=== PATIENT | female | born 1985 | race Two or more races ===

== ENCOUNTER 2017-04-11 17:51 | Emergency (ER) | payer MEDICARE, MEDICAID ==
[2017-04-11] MEDS ORDERED: Sodium Chloride 0.9% 1,000 ML IV ONE (17:56)
--- NOTE | 2017-04-11 18:18 | ED Physician Chart ---
Chief Complaint/HPI - Patient Information Date Seen:: 04/11/17 Time Seen:: 18:10 Chief Complaint:: BACK PAIN History of Present Illness:: THIS IS A 31 YR OLD FEMALE WHO IS BECAUSE OF VOMITING AND PAIN IN HER BACK. STATES THAT SHE HAS DILAUDID FOR PAIN BUT CANNOT TAKE IT BECAUSE OF VOMITING. SHE STATES THAT SHE IS IN A PAIN MANAGEMENT PROGRAM AT [facility]. SHE DENIES ANY PARTICULAR REASON FOR HER BACK PAIN. SHE PERSIST IN WANTING DILAUDID. SHE DENIES DRUG ABUSE EXCEPT FOR THC. THE PATIENT STATES THAT SHE WAS SEEN AT [facility] YESTERDAY. Allergies:: Allergies Allergy/AdvReac Type Severity Reaction Status Date / Time haloperidol [From Haldol] Allergy Verified 04/11/17 18:05 Historian:: Patient, Family Member (MEDICAL DOCTOR DR. BETH) Review:: Nurse's Note Reviewed Review of Systems - Review of Systems General/Constitutional: No fever, No chills, Weight loss, No weakness, No diaphoresis, No edema, No loss of appetite Skin: No skin lesions, No rash, No bruising Head: No headache, No light-headedness Eyes: No loss of vision, No pain, No diplopia ENT: No earache, No nasal drainage, No sore throat, No tinnitus Neck: No neck pain, No swelling, No thyromegaly, No stiffness, No mass noted Cardio Vascular: No chest pain, No palpitations, No PND, No orthopnea, No edema Pulmonary: No SOB, No cough, No sputum, No wheezing GI: No nausea, No vomiting, No diarrhea, No pain, No melena, No hematochezia, No constipation, No hematemesis G/U: No dysuria, No frequency, No hematuria Musculoskeletal: No bone or joint pain, Back pain, No muscle pain Endocrine: No polyuria, No polydipsia Psychiatric: Prior psych history, No depression, No anxiety, No suicidal ideation Hematopoietic: No bruising, No lymphadenopathy Allergic/Immuno: No urticaria, No angioedema Neurological: No syncope, No focal symptoms, No weakness, No paresthesia, No headache, No seizure, No dizziness, No confusion, No vertigo Past Medical History - Past Medical History Obtainable: Yes Past Medical History: Other (CHRONIC PAIN ) Family History: None Social History: Non Smoker, No Alcohol, Illicit Drug Use Surgical History: None Medication: Reviewed Family Medical History - Family Member Father History Unknown: Yes Hx Family Cancer: No Hx Family Coronary Artery Disease: No Hx Family Congestive Heart Failure: No Hx Family Hypertension: No Hx Family Stroke: No Hx Family Diabetes: No Hx Family Seizures: No Hx Family Dementia: No Hx Family AIDS: No Hx Family HIV: No Hx Family COPD: No Physical Exam - Physical Examination General/Constitutional: Awake, Well-developed, well-nourished, Alert, No distress, GCS 15, Non-toxic appearing, Ambulatory Other Gen/Cons comments:: THE PATIENT IS RESTLESS CONSTANTLY ASKING FOR PAIN MEDICATIONS. Head: Atraumatic Eyes: Lids, conjuctiva normal, PERRL, EOMI Skin: Nl inspection, No rash, No skin lesions, No ecchymosis, Well hydrated, No lymphadenopathy ENMT: External ears, nose nl, Nasal exam nl, Lips, teeth, gums nl Neck: Nontender, Full ROM w/o pain, No JVD, No nuchal rigidity, No bruit, No mass, No stridor Respiratory: Nl effort/Exclusion, Clear to Auscultation, No Wheeze/Rhonchi/Rales Cardio Vascular: RRR, No murmur, gallop, rubs, NL S1 S2 GI: No tenderness/rebounding/guarding, No organomegaly, No hernia, Normal BS's, Nondistended, No mass/bruits, No McBurney tenderness : No CVA tenderness Extremities: No tenderness or effusion, Full ROM, normal strength in all extremities, No edema, Normal digits & nails Neuro/Psych: Alert/oriented, DTR's symmetric, Normal sensory exam, Normal motor strength, Judgement/insight normal, Mood normal, Normal gait, No focal deficits Misc: normal gait, Normal back, No paraspinal tenderness Labs/Radiology/EKG Results - Lab Results Results: Abnormal Lab Results 04/11/17 04/11/17 04/11/17 19:14 19:14 19:14 WBC 13.9 H RBC 4.75 Hgb 13.6 Hct 42.0 MCV 88.4 MCH 28.6 MCHC Differential 32.3 RDW 13.4 Plt Count 271 MPV 8.4 Neutrophils % 78.2 Lymphocytes % 15.6 L Monocytes % 4.9 Eosinophils % 0.7 Basophils % 0.6 PT 10.4 INR 1.00 Sodium 134 L Potassium 3.5 Chloride 102 Carbon Dioxide 26.2 Anion Gap 9.3 BUN 12 Creatinine 0.8 Est GFR ( Amer) > 60.0 Est GFR (Non-Af Amer) > 60.0 BUN/Creatinine Ratio 15.0 Glucose 99 Calcium 9.5 Total Bilirubin 0.5 AST 21 ALT 19 Alkaline Phosphatase 67 Troponin I Total Protein 7.3 Albumin 4.4 Globulin 2.9 Albumin/Globulin Ratio 1.5 04/11/17 19:14 WBC RBC Hgb Hct MCV MCH MCHC Differential RDW Plt Count MPV Neutrophils % Lymphocytes % Monocytes % Eosinophils % Basophils % PT INR Sodium Potassium Chloride Carbon Dioxide Anion Gap BUN Creatinine Est GFR ( Amer) Est GFR (Non-Af Amer) BUN/Creatinine Ratio Glucose Calcium Total Bilirubin AST ALT Alkaline Phosphatase Troponin I < 0.01 L Total Protein Albumin Globulin Albumin/Globulin Ratio Assessment - Assessment General Assessment: THIS PATIENT IS CLEARLY ADDICTED TO ANALGESICS AND SHOULD BE IN PAIN MANAGEMENT. THE PATIENT WAS GIVEN ATIVAN, SOLUMEDROL, BENADRYL,DILAUDID, ZOFRAN, ROCEHPIN AND IV FLUIDS. HOWEVER SHE CONTINUED TO ASK FOR MORE PAIN MEDICATIONS. THE PATIENT WAS GIVEN GABAPENTIN 600 MG TO TAKE AT HOME. SHE WAS TOLD TO FOLLOW UP AT HER PAIN MANAGEMENT DOCTOR IN THE AM. ED Septic Shock - . Is Septic Shock (SBP<90, OR Lactate>4 mmol\L) present?: No Reassessment (Disposition) - Reassessment Reassessment Condition:: Improved - Diagnosis Diagnosis:: CHRONIC BACK PAIN DRUG ADDICTION TO ANALGESICS - Aftercare/Follow up Instructions Aftercare/Follow-Up Instructions:: Counseled pt regarding lab results/diagnosis & need follow up, Refer to Discharge Instructions, Counseled pt & family regarding lab results/diagnosis & need follow up - Patient Disposition Discharge/Transfer:: Home Condition at Disposition:: Improved ED Discharge Plan - Patient Disposition Admit/Discharge/Transfer: PT DISCHARGED HOME Condition at Disposition: Improved Instructions: Back Pain, Adult Additional Instructions: THE PATIENT WAS TOLD TO TAKE THE MEDICATION DIRECTED.
[2017-04-11 19:23] LABS: % BASOPHILS 0.6 % (0.0-2.0); % EOSINOPHILS 0.7 % (0.0-5.0); % LYMPHOCYTES 15.6 % (20.0-50.0); % MONOCYTES 4.9 % (2.0-10.0); % NEUTROPHILS 78.2 % (40.0-80.0); HEMOGLOBIN 13.6 gm/dL (11.7-15.5); MEAN CELL VOLUME 88.4 fl (81-100); MEAN CORPUSCULAR HEMOGLOBIN 28.6 pg (27.0-31.0); MEAN CORPUSCULAR HGB CONC 32.3 pg (28.0-36.0); MEAN PLATELET VOLUME 8.4 fl; NEUTROPHILE ABSOLUTE 10.8 Th/cmm (1.8-8.0); PLATELET COUNT 271 Th/cmm (150-400); RED BLOOD COUNT 4.75 Mil/cmm (3.80-5.10); RED CELL DISTRIBUTION WIDTH 13.4 % (11.5-20.0)
[2017-04-11 19:28] LABS: WHITE BLOOD COUNT 13.9 Th/cmm (4.8-10.8)
[2017-04-11 19:40] LABS: PROTHROMBIN TIME (TEST) 10.4 SECONDS (9.5-11.5)
[2017-04-11 19:44] LABS: ALB/GLOB RATIO 1.5 (1.0-1.8); ALKALINE PHOSPHATASE 67 U/L (34-104); ANION GAP 9.3 (7.0-16.0); BILIRUBIN,TOTAL 0.5 mg/dL (0.3-1.0); BUN - UREA NITROGEN 12 mg/dL (7-25); CALCIUM SERUM 9.5 mg/dL (8.6-10.3); CARBON DIOXIDE 26.2 mEq/L (21.0-31.0); CHLORIDE 102 mEq/L (98-107); CREATININE - SERUM 0.8 mg/dL (0.6-1.2); GLUCOSE 99 mg/dL (70-105); POTASSIUM SERUM 3.5 mEq/L (3.5-5.1); SGOT 21 U/L (13-39); SGPT/ALT 19 U/L (7-52); SODIUM SERUM 134 mEq/L (136-145)
[2017-04-11] MEDS ORDERED: HYDROmorphone 1 mg/mL 1mL Syr IVP STA (20:00)
[2017-04-11] MEDS ORDERED: HYDROmorphone 1 mg/mL 1mL Syr ONE (20:05)
[2017-04-11 20:49] LABS: URINE BILIRUBIN NEGATIVE (NEGATIVE); URINE BLOOD MODERATE (NEGATIVE); URINE COLOR YELLOW; URINE GLUCOSE (UA) NEGATIVE (NEGATIVE); URINE KETONE 15 mg/dL (NEGATIVE)
[2017-04-11 20:50] LABS: URINE PH 8.5; URINE PROTEIN NEGATIVE (NEGATIVE); URINE UROBILINOGEN 0.2 E.U./dL (0.2 - 1.0)
[2017-04-11 20:52] LABS: URINE BACTERIA NONE SEEN /hpf (NONE SEEN); URINE EPITHELIAL CELLS FEW /lpf (FEW); URINE RBC >100 /hpf (0-5); URINE WBC NONE SEEN /hpf (0-5)
== END 2017-04-11 21:05 | disposition home or self-care (01) ==
LOC: ER 17:51
DX: G89.29 Other chronic pain (principal); M54.9 Dorsalgia, unspecified; F55.8 Abuse of other non-psychoactive substances; Z88.8 Allergy status to other drugs, medicaments and biological substances
CPT/HCPCS: 99284; 96365; 96375; 96376; 84484; 36415; 83605; 84443; 85025; 85610; 81001; 80053; 87040; J2060; J2405 ×2; J0696; J2930; J1170; J1200; J7030; Z7502

== ENCOUNTER 2017-04-13 07:21 | Emergency (ER) | payer MEDICARE, MEDICAID ==
--- NOTE | 2017-04-13 07:36 | ED Physician Chart ---
Chief Complaint/HPI - Patient Information Date Seen:: 04/13/17 Time Seen:: 07:30 Chief Complaint:: Recurrent nausea/vomiting since this morning. History of Present Illness:: Pt has h/o marijuana use with recurrent nausea/vomiting. Pt began to have recurrent nausea/vomiting since about 5 am today. Pt has h/o chronic pain syndrome related to chronic low back pain. Pt has been [facility] by [facility] and is being treated with Dilaudid. Pt states that her nausea/ vomiting this morning prevents her from taking her usual dose of Dilaudid. Pt states that she had work up by PCP Dr. Witt for her chronic low back pain with LS spine X-ray, etc. Pt denies any LE weakness or numbness. No urinary incontinence or retention. Pt has had multiple ER visits for the same condition. His last visit was 2 days ago here and was treated by Dr. Marquez. Allergies:: Allergies Allergy/AdvReac Type Severity Reaction Status Date / Time haloperidol [From Haldol] Allergy Verified 04/11/17 18:05 Vitals:: see Nurse Note. Historian:: Patient Family MD/PCP:: Dr. Witt LMP:: Now. Review:: Nurse's Note Reviewed Past Medical History - Past Medical History Past Medical History: Other (Chronic pain syndrome with low back pain, followed by Dr. Benitez at [facility]) Family History: Heart disease (in father) Social History: Non Smoker, No Alcohol, Illicit Drug Use (with marijuana. Pt has been informed about health risks associated with chronic marijuana use and has been advised to quit. Pt states that she plans to work with her PCP Dr. Witt to enroll in a detox program.), , Lives With Parents Employment:: unemployed. Surgical History: None Psychiatricy History: None Medication: Reviewed Family Medical History - Family Member Father History Unknown: Yes Hx Family Cancer: No Hx Family Coronary Artery Disease: No Hx Family Congestive Heart Failure: No Hx Family Hypertension: No Hx Family Stroke: No Hx Family Diabetes: No Hx Family Seizures: No Hx Family Dementia: No Hx Family AIDS: No Hx Family HIV: No Hx Family COPD: No Labs/Radiology/EKG Results - Lab Results Results: Laboratory Tests 04/13/17 04/13/17 04/13/17 07:37 07:41 07:42 WBC RBC Hgb Hct MCV MCH MCHC Differential RDW Plt Count MPV Neutrophils % Lymphocytes % Monocytes % Eosinophils % Basophils % Sodium Potassium Chloride Carbon Dioxide Anion Gap BUN Creatinine Est GFR ( Amer) Est GFR (Non-Af Amer) BUN/Creatinine Ratio Glucose Whole Bld Lactic Acid Calcium Urine Source CLEAN C Urine Color YELLOW Urine Clarity HAZY Urine pH 8.5 Ur Specific [place] 1.025 Urine Protein 30 H Urine Glucose (UA) NEGATIVE Urine Ketones 15 H Urine Blood LARGE H Urine Nitrate NEGATIVE Urine Bilirubin NEGATIVE Urine Urobilinogen 0.2 Ur Leukocyte Esterase NEGATIVE Urine RBC >100 H Urine WBC 2-5 Ur Epithelial Cells FEW Urine Bacteria FEW Urine Test NEGATIVE Urine Opiates Screen NEGATIVE Urine Methadone Screen NEGATIVE Ur Barbiturates Screen POSITIVE H Ur Tricyclics Screen NEGATIVE Ur Phencyclidine Scrn NEGATIVE Amphetamines Screen NEGATIVE U Methamphetamines Scrn NEGATIVE U Benzodiazepines Scrn POSITIVE H U Cocaine Metab Screen NEGATIVE U Cannabinoids Screen POSITIVE H 04/13/17 04/13/17 04/13/17 07:48 07:48 07:48 WBC 12.9 H RBC 4.71 Hgb 13.8 Hct 41.4 MCV 88.0 MCH 29.3 MCHC Differential 33.3 RDW 12.9 Plt Count 342 D MPV 8.0 Neutrophils % 54.1 Lymphocytes % 34.5 Monocytes % 7.9 Eosinophils % 1.7 Basophils % 1.8 Sodium 136 Potassium 3.5 Chloride 104 Carbon Dioxide 27.0 Anion Gap 8.5 BUN 16 Creatinine 0.8 Est GFR ( Amer) > 60.0 Est GFR (Non-Af Amer) > 60.0 BUN/Creatinine Ratio 20.0 Glucose 101 Whole Bld Lactic Acid 1.11 Calcium 9.7 Urine Source Urine Color Urine Clarity Urine pH Ur Specific [place] Urine Protein Urine Glucose (UA) Urine Ketones Urine Blood Urine Nitrate Urine Bilirubin Urine Urobilinogen Ur Leukocyte Esterase Urine RBC Urine WBC Ur Epithelial Cells Urine Bacteria Urine Test Urine Opiates Screen Urine Methadone Screen Ur Barbiturates Screen Ur Tricyclics Screen Ur Phencyclidine Scrn Amphetamines Screen U Methamphetamines Scrn U Benzodiazepines Scrn U Cocaine Metab Screen U Cannabinoids Screen Note: urine was contaminated with menstrual blood according to nursing staff. ED Septic Shock - . Is Septic Shock (SBP<90, OR Lactate>4 mmol\L) present?: No Reassessment (Disposition) - Reassessment Reassessment:: 1000 Pt repeatedly requested for more Dilaudid. Pt has not been tachycardic with other objective sign of distress. Discussed with nusing staff who involved with her care, who concurred that pt should not receive more opioid pain control. Per pt's authorization, I discussed with pt's mother at length, who stated that she is very familiar with pt's condition. Arrangement is being made to follow with pt's PCP Dr. Witt and her pain clinic physician Dr. Benitez to refer pt for a detox program. Pt finally decided to leave with her mother. Her mother will drive pt home and will care for her. Aftercare instructions have been given. Reassessment Condition:: Improved - Diagnosis Diagnosis:: Polysubstance abuse with recurrent N/V. Chronic pain syndrome with opioid dependency. - Aftercare/Follow up Instructions Aftercare/Follow-Up Instructions:: Refer to Discharge Instructions Notes:: Clear liquid today. Increase oral fluid. Bedrest. N/V/D Instructions given. Drowsiness precautions given with the use of Dilaudid. F/U with PCP Dr. Witt and [facility] with Dr. Benitez in one day for recheck with repeat lab study: CBC, urinalysis. Return to ER immediately if condition worsens or if any further questions/problems. Medication Prescribed:: None - Patient Disposition Discharge/Transfer:: Home Time:: 09:55 Condition at Disposition:: Stable, Improved ED Discharge Plan - Patient Disposition Admit/Discharge/Transfer: PT DISCHARGED HOME Condition at Disposition: Stable Instructions: Cyclic Vomiting Syndrome, Narcotic Withdrawal Additional Instructions: Follow up with your primary care doctor or you can follow up with Dr. Mejia. Do not smoke marijuana. Take all prescribed medications as directed. Return to emergency Accepting Physician: Katie Mejia [Courtesy] -
[2017-04-13] MEDS ORDERED: HYDROmorphone 1 mg/mL 1mL Syr IVP STA ×2 (07:38→08:48)
[2017-04-13] MEDS ORDERED: HYDROmorphone 1 mg/mL 1mL Syr ONE ×2 (07:43→08:43)
[2017-04-13 07:55] LABS: % BASOPHILS 1.8 % (0.0-2.0); % EOSINOPHILS 1.7 % (0.0-5.0); % LYMPHOCYTES 34.5 % (20.0-50.0); % MONOCYTES 7.9 % (2.0-10.0); % NEUTROPHILS 54.1 % (40.0-80.0); HEMATOCRIT 41.4 % (35.0-45.0); HEMOGLOBIN 13.8 gm/dL (11.7-15.5); MEAN CORPUSCULAR HEMOGLOBIN 29.3 pg (27.0-31.0); MEAN CORPUSCULAR HGB CONC 33.3 pg (28.0-36.0); PLATELET COUNT 342 Th/cmm (150-400); RED BLOOD COUNT 4.71 Mil/cmm (3.80-5.10); RED CELL DISTRIBUTION WIDTH 12.9 % (11.5-20.0)
[2017-04-13 08:03] LABS: WHITE BLOOD COUNT 12.9 Th/cmm (4.8-10.8)
[2017-04-13 08:12] LABS: ANION GAP 8.5 (7.0-16.0); BUN - UREA NITROGEN 16 mg/dL (7-25); CALCIUM SERUM 9.7 mg/dL (8.6-10.3); CHLORIDE 104 mEq/L (98-107); CREATININE - SERUM 0.8 mg/dL (0.6-1.2); GLUCOSE 101 mg/dL (70-105); POTASSIUM SERUM 3.5 mEq/L (3.5-5.1); SODIUM SERUM 136 mEq/L (136-145)
[2017-04-13 08:49] LABS: AMPHETAMINE URINE NEGATIVE (NEGATIVE); BARBITURATES URINE POSITIVE (NEGATIVE); METHADONE URINE NEGATIVE (NEGATIVE)
[2017-04-13 08:53] LABS: URINE COLOR YELLOW
[2017-04-13 08:54] LABS: URINE BILIRUBIN NEGATIVE (NEGATIVE); URINE BLOOD LARGE (NEGATIVE); URINE GLUCOSE (UA) NEGATIVE (NEGATIVE); URINE KETONE 15 mg/dL (NEGATIVE); URINE PH 8.5; URINE PROTEIN 30 mg/dL (NEGATIVE); URINE UROBILINOGEN 0.2 E.U./dL (0.2 - 1.0)
[2017-04-13 08:55] LABS: URINE EPITHELIAL CELLS FEW /lpf (FEW); URINE RBC >100 /hpf (0-5)
[2017-04-13 08:56] LABS: URINE BACTERIA FEW /hpf (NONE SEEN)
== END 2017-04-13 09:55 | disposition home or self-care (01) ==
LOC: ER 07:21
DX: R11.2 Nausea with vomiting, unspecified (principal); G89.4 Chronic pain syndrome; F11.20 Opioid dependence, uncomplicated; F19.10 Other psychoactive substance abuse, uncomplicated; Z88.8 Allergy status to other drugs, medicaments and biological substances
CPT/HCPCS: 99284; 96374; 96375; 96376; 36415; 83605; 80307; 85025; 81001; 81025; 80048; 87040; J2405; J1170; Z7502; Z7610

== ENCOUNTER 2017-08-01 10:36 | Emergency (ER) | payer MEDICARE, MEDICAID ==
--- NOTE | 2017-08-01 15:09 | ER Physician Documentation ---
DATE OF SERVICE: A 31-year-old female patient. HISTORY OF PRESENT ILLNESS: This is a patient who came in screaming, shouting, yelling, wanting pain medication and wanting narcotics. She has a pain management program. She is supposed to go today, but she came here instead to get some narcotics and pain medication. She says she has back pain, body pain and this pain and that pain, every kind of pain that she can think. She thinks this is an Emergency Room, so she should get all the medication that she wants. She is complaining of nausea and vomiting also, but none was witnessed. She complains of back pain. I did not find any back pain, tenderness or any guarding. No other complaints are needed, but continuously screaming and yelling and shouting. The patient was told at the most, we will give her some Ultram and send her over to the Pain Management. Her past history is again the pain issue is there in the past and I cannot get more history from her or from her mother who brought the patient here. According to the nurse, the patient has been coming here. I do not have any more history available from the patient. PAST HISTORY: Denied and negative except for the psych history that is available. PERSONAL HISTORY: Benign and negative. REVIEW OF SYSTEMS: No history of any chest pain, no palpitations, no dizziness, no COPD, no emphysema, no history of any gut problems, diarrhea or vomiting. No history of any cirrhotic liver, no history of taking any [id number] medication, but she is in the pain program for some time and she is going right now. We will give her 30 mg of Ultram and then informed her mother and mother is agreeing to go after she gets an injection. PHYSICAL EXAMINATION: VITAL SIGNS: Temperature of 97.1, pulse of 68, respirations 16, blood pressure 106/65, and saturation is 98%. CHEST: Clear, without any rales, rhonchi, or bronchial breathing. ABDOMEN: Soft, benign, negative. CENTRAL NERVOUS SYSTEMS: Within normal. EMERGENCY DEPARTMENT COURSE: The patient shouting and yelling and wearing dark sunglasses not in any distress that I can see, but she is shouting and yelling and thinking because this is Emergency Room, she will get all the narcotics and pain medications that she is demanding and there is no pain that I can see. No spasm in the muscles. Heart sounds are good. Lungs are good. Abdomen is good. No hernia. No evidence of any distention. CLINICAL IMPRESSION: The patient has a pain management problem. The patient has most likely psychiatric problems. She would need to go and see a psychiatrist and she does not want to go and see a psychiatrist. The patient's management was discussed with the patient's mother at length. The patient's mother wants to take her to the Pain Management Program at the present moment after getting the pain medications. Vital signs are normal. The patient does not allow anything else to be done for her. She does not want any ____ medication, but she wants any narcotics that could be given to her. ALLERGIES: TO HALDOL. Pain is 10/10. We will give her Toradol and then if she desires, she can be sent back to the Pain Management Program where she has an appointment today and she should follow the advice of the nurse and my advice and she should go after the pain is relieved with Ultram 30 mg should definitely help her up, but we are not the Pain Clinic here, this is an Emergency Room for basic emergency needs and she will need pain management, so she will be going there. JOB# [id number]
== END 2017-08-01 11:22 | disposition home or self-care (01) ==
LOC: ER 10:36
DX: M54.9 Dorsalgia, unspecified (principal)
CPT/HCPCS: 99283; 96372; Q0162; J1885; Z7502

== ENCOUNTER 2018-06-14 09:58 | Emergency (ER) | payer MEDICARE, MEDICAID ==
[2018-06-14 10:57] LABS: URINE SOURCE CLEAN C
[2018-06-14] MEDS ORDERED: PROMETHAZINE 12.5 MG RC ONE ×2 (11:06→11:11)
--- NOTE | 2018-06-14 11:06 | ED Physician Chart ---
ED Chief Complaint/HPI - Patient Information Date Seen:: 06/14/18 Time Seen:: 10:20 Chief Complaint:: constipation and back pain History of Present Illness:: constipation and chronic back pain. Patient was at a previous hospital this morning. Taken there by firefighters since her mother refuses to drive her to the hospital since she is fed up with her situation. Patient was seen at [facility] this morning. I personally spoke to Dr. Joe who treated her this morning and gave her Benadryl 50 mg IM, Toradol 15 mg IM and Reglan 10 mg IM. She told Dr. Joe that she has both [place] and Dilaudid at home. [facility] faxed us previous records: 06/13/2018 rectal revealed external hemorrhoids which are not inflamed and no masses or impacted stool in the rectal vault. On 06/13/2018, patient received Ativan 1 mg IVP, Benadryl 50 mg IVP, Morphine 8 mg IVP and a total of Reglan 20 mg IV. She also received potassium 40 meq for a level of 2.9. Her diagnoses included malingering and constipation. On that date, her lipase level was 557 up from the previous day of 06/12/2018. 06/12/2018: on this date, she received Dilaudid 2 mg IVP, Ketamine 30 mg IVP ( total amount) and Zofran 4 mg IVP. On 06/12/2018, her lipase level was normal at 247 before she received all of these medications. 06/10/2018: lipase level was normal at 133. Pelvic ultrasound was unremarkable. On that date, she received Zofran 4 mg IP, Ativan 3 mg IVP, Dilaudid 2 mg IVP. Her diagnosis included chronic pain syndrome. while here, the patient continues to yell and scream. She is asking for IV Versed to be given in her neck and to be given Propofol and an epidural. patient states that she has had a previous MRI which revealed disc narrowing ( no herniated disc) and no other pathology. Allergies:: Allergies Allergy/AdvReac Type Severity Reaction Status Date / Time haloperidol [From Haldol] Allergy Verified 06/14/18 10:09 olanzapine [From Zyprexa] Allergy Verified 06/14/18 10:10 Vitals:: Vital Signs - 8 hr 06/14/18 10:03 Temp 97.4 F HR 76 RR 18 BP 147/88 O2 Sat % 100 Historian:: Patient, Family Member Review:: Nurse's Note Reviewed, Old Chart Reviewed, Transfer documents Reviewed ED Review of Systems - Review of Systems General/Constitutional: No fever, No chills, No weight loss, No weakness, No diaphoresis, No edema, No loss of appetite Skin: No skin lesions, No rash, No bruising Head: No headache, No light-headedness Eyes: No loss of vision, No pain, No diplopia ENT: No earache, No nasal drainage, No sore throat, No tinnitus Neck: No neck pain, No swelling, No thyromegaly, No stiffness, No mass noted Cardio Vascular: No chest pain, No palpitations, No PND, No orthopnea, No edema Pulmonary: No SOB, No cough, No sputum, No wheezing GI: Nausea, Pain G/U: No dysuria, No frequency, No hematuria Musculoskeletal: Back pain Endocrine: No polyuria, No polydipsia Psychiatric: No prior psych history, No depression, No anxiety, No suicidal ideation Hematopoietic: No bruising, No lymphadenopathy Allergic/Immuno: No urticaria, No angioedema Neurological: No syncope, No focal symptoms, No weakness, No paresthesia, No headache, No seizure, No dizziness, No confusion, No vertigo ED Past Medical History - Past Medical History Obtainable: Yes Past Medical History: Other (chronic pain syndrome.) Family Medical History - Family Member Father History Unknown: Yes Ethnicity: Non- Living Status: Still Living Hx Family Cancer: No Hx Family Coronary Artery Disease: No Hx Family Congestive Heart Failure: No Hx Family Hypertension: No Hx Family Stroke: No Hx Family Diabetes: No Hx Family Seizures: No Hx Family Dementia: No Hx Family AIDS: No Hx Family HIV: No Hx Family COPD: No Hx Family Psychiatric Problems: No ED Physical Exam - Physical Examination Other Gen/Cons comments:: yelling and screaming out of control. This is the norm for her based on ER records from [facility] from 04/11/17 and 08/01/17. Demanded narcotics and Dilaudid on other visits as well. according to a phone call to [facility] performed by Kian Jensen , the patient's father is a doctor there. An abdominal ultrasound was read out as unremarkable on 06/12/2018 which was ordered by her father at 2:29 p.m. Her father's name is Dr. Александр Lamb. An abdominal pelvic CT scan performed on 06/12/2018 was also ordered by her father at 2:45 p.m. and was read out as being unremarkable. This patient will not receive any narcotics whatsoever. Her CURES report is 3 pages long and documents that she receives oral Dilaudid and Head: Atraumatic Eyes: Lids, conjuctiva normal Skin: Nl inspection, No rash, No skin lesions, No ecchymosis, Well hydrated, No lymphadenopathy ENMT: External ears, nose nl Neck: Nontender, Full ROM w/o pain, No JVD, No nuchal rigidity, No bruit, No mass, No stridor Respiratory: Nl effort/Exclusion, Clear to Auscultation, No Wheeze/Rhonchi/Rales Cardio Vascular: RRR, No murmur, gallop, rubs, NL S1 S2 GI: No tenderness/rebounding/guarding, No organomegaly, No hernia, Normal BS's, Nondistended, No mass/bruits, No McBurney tenderness : No CVA tenderness Extremities: No tenderness or effusion, Full ROM, normal strength in all extremities, No edema, Normal digits & nails Neuro/Psych: Alert/oriented, Normal sensory exam, Normal motor strength, Judgement/insight normal, Mood normal, Normal gait, No focal deficits Other Neuro/Psych comments:: negative straight leg raise bilaterally. Misc: Normal back, No paraspinal tenderness Other Misc comments:: no evidence of muscle spasm. Negative straight leg raise bilaterally. ED Assessment - Assessment General Assessment: AAS: no free air. Absolutely no stool seen throughout her intestines. No evidence of ileus or bowel obstruction. patient has not complained of any nausea while here. I will write her a prescription for nausea jut in case. Assessment/Comments:: Mother is on her way to pick her up. ED Septic Shock - . Is Septic Shock (SBP<90, OR Lactate>4 mmol\L) present?: No - <6hrs of presentation: Vital Signs: Vital Signs - 8 hr 06/14/18 10:03 Temp 97.4 F HR 76 RR 18 BP 147/88 O2 Sat % 100 ED Reassessment (Disposition) - Reassessment Reassessment Condition:: Improved - Diagnosis Diagnosis:: Chronic Pain Syndrome Drug Seeking Behavior Malingering Possible borderline personality disorder. - Aftercare/Follow up Instructions Notes:: follow up with your primary care physician and your pain management doctor. stop inserting your fingers into your anus to disimpact yourself. there is no stool present throughout your intestines. you need to eat and drink more in order to form stool. I have written you for anti-nausea medicine just in case you need it. Medication Prescribed:: Zofran 4 mg ODT. No pain pills prescribed. - Patient Disposition Discharge/Transfer:: Home Condition at Disposition:: Stable, Improved
[2018-06-14 11:07] LABS: URINE BILIRUBIN SMALL (NEGATIVE); URINE BLOOD NEGATIVE (NEGATIVE); URINE CLARITY CLEAR (CLEAR); URINE COLOR YELLOW; URINE GLUCOSE (UA) NEGATIVE (NEGATIVE); URINE KETONE >=80 mg/dL (NEGATIVE); URINE LEUKOCYTE ESTERASE NEGATIVE (NEGATIVE); URINE MICROSCOPIC INDICATED? YES; URINE NITRATE NEGATIVE (NEGATIVE); URINE PH 7.5 (4.6 - 8.0); URINE PROTEIN TRACE mg/dL (NEGATIVE); URINE UROBILINOGEN 0.2 E.U./dL (0.2 - 1.0)
[2018-06-14 11:15] LABS: URINE EPITHELIAL CELLS FEW /lpf (FEW); URINE RBC 0-2 /hpf (0-5)
[2018-06-14 11:16] LABS: URINE AMORPHOUS SEDIMENT FEW PHOSPHATES (NONE SEEN); URINE BACTERIA FEW /hpf (NONE SEEN)
[2018-06-14 11:19] LABS: AMPHETAMINE URINE NEGATIVE (NEGATIVE); BARBITURATES URINE NEGATIVE (NEGATIVE); BENZODIAZEPINES QUAL URINE POSITIVE (NEGATIVE); CANNABINOID THC NEGATIVE (NEGATIVE); COCAINE METABOLITE QUAL URINE NEGATIVE (NEGATIVE); METHADONE URINE NEGATIVE (NEGATIVE); METHAMPHETAMINES QUAL URINE NEGATIVE (NEGATIVE); OPIATES (MORPHINE) QUAL. URINE POSITIVE (NEGATIVE); PHENCYCLIDINE (PCP) URINE NEGATIVE (NEGATIVE); TRICYCLICS (TCA) QUAL. URINE NEGATIVE (NEGATIVE)
--- NOTE | 2018-06-15 08:35 | Diagnostic Imaging Report ---
Portable chest x-ray History: Shortness of breath Allowing for portable technique the heart size is normal. No focal pulmonary parenchymal processes. No hilar or mediastinal abnormalities. Impression: No acute abnormalities.
--- NOTE | 2018-06-15 08:36 | Diagnostic Imaging Report ---
Abdominal series (2 views) HISTORY: Pain There is a nonspecific gas pattern of nondilated bowel. No free intraperitoneal air. No abnormal calcifications. IMPRESSION: No acute radiographic abnormalities
== END 2018-06-14 12:36 | disposition home or self-care (01) ==
LOC: ER 09:58
DX: G89.4 Chronic pain syndrome (principal); M54.9 Dorsalgia, unspecified; K59.00 Constipation, unspecified; Z76.5 Malingerer [conscious simulation]; Z88.8 Allergy status to other drugs, medicaments and biological substances
CPT/HCPCS: 71045-TC; 74019-TC; 80307; 81001-TC; 81025-TC; J1200; J1885; J2060